=== PATIENT | male | born 1990 | race Caucasian/White ===

== ENCOUNTER 2021-09-27 12:57 | Emergency (ER) | payer OTHER ==
[~2021-09-27] VITALS: Ht 172.7 cm; Wt 79.4 kg
[~2021-09-27 12:57] MED LIST: ALLEGRA-D 24 H1 EACH; IBUPROFEN 800800 M1 PO; NORCO 5-325 TA1 EACH PO
[2021-09-27] MEDS ORDERED: CITRATE OF MAG296 M1 PO (16:34)
[2021-09-27 16:42] VITALS: BP 125/75
== END 2021-09-27 16:43 | disposition home or self-care (01) ==
LOC: M.ERS 12:57
DX: K59.00 Constipation, unspecified (principal); K62.89 Other specified diseases of anus and rectum; J45.909 Unspecified asthma, uncomplicated; F17.210 Nicotine dependence, cigarettes, uncomplicated; Z96.22 Myringotomy tube(s) status; Z88.6 Allergy status to analgesic agent; Z88.1 Allergy status to other antibiotic agents; Z88.0 Allergy status to penicillin; Z88.2 Allergy status to sulfonamides